=== PATIENT | female | born 1980 | race Caucasian/White ===

== ENCOUNTER 2021-10-15 12:55 | Emergency (ER) | payer SELFPAY ==
[~2021-10-15] VITALS: Ht 157.5 cm; Wt 90.7 kg
[2021-10-15 13:31] VITALS: BP 141/89
--- NOTE | 2021-10-15 13:37 | NUR ---
Ambulatory edrm6. Pt c/o vaginal ordor with itching starting appx 3-4 days ago. Pt reports history of UTI.
[2021-10-15 14:13] LABS: BILIRUBIN,URINE NEGATIVE (NEGATIVE); UROBILINOGEN,URINE 0.2 E.U./dL (0.2)
[2021-10-15 15:03] VITALS: BP 136/76
[2021-10-15] MEDS ORDERED: ROCEPHIN IM STA (15:06)
--- NOTE | 2021-10-15 15:15 | ER.PDOC ---
General Chief Complaint: Female Urogenital Problems Stated Complaint: FEMALE Time seen by MD: 15:08 Source: patient Exam Limitations: no limitations History of Present Illness Initial Comments Patient complaining of itchy vagina odorous discharge after she had unprotected sex with someone 4 days ago. No fever. No pelvic pain. She is concerned that she might have contracted STD and does not want to take it to her in the house. Severity/Quality: moderate Associated Symptoms: vaginal discharge Past Medical History Medical History: no pertinent history Surgical History: cholecystectomy Family History Significant Family History: no pertinent family hx Social History Smoking: non-smoker Alcohol Use: none Drug Use: none Review of Systems Constitutional: no symptoms reported EENTM: no symptoms reported Respiratory: no symptoms reported Cardiovascular: no symptoms reported Gastrointestinal: no symptoms reported Genitourinary: see HPI All Other Systems: Reviewed and Negative Physical Exam General Appearance: No Apparent Distress, WD/WN EENT: eyes nml inspection, nml ENT inspection, pharynx nml Neck: nml inspection, non-tender Cardiovascular/Respiratory: Regular Rate, Rhythm, No M/R/G, Normal Peripheral Pulses, No JVD, Normal Breath Sounds, No Respiratory Distress Abdomen: Normal Bowel Sounds, Non Tender, Soft, No Organomegaly, No Pulsatile Mass Back: nml inspection Pelvic: No Cerv. 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, No Motor/Sensory Deficits, Alert, Normal Mood/Affect, Oriented x 3 Skin: Normal Color, Warm/Dry Lymphatic: No Adenopathy Results/Orders Results/Orders Orders - ALCIRA ANDREWS MD Urinalysis (10/15/21 14:05) Hcg Urine (10/15/21 14:05) Urine Culture (10/15/21 UNK) Ceftriaxone Sodium (Rocephin) (10/15/21 15:06) Vital Signs Date Time Temp Pulse Resp B/P (MAP) Pulse Ox O2 Delivery O2 Flow Rate FiO2 10/15/21 15:03 97.8 77 18 136/76 (96) 100 Room Air* 0 21 10/15/21 13:31 97.8 80 18 10/15/21 13:31 97.8 80 18 141/89 (106) 100 Room Air* 0 21 10/15/21 13:31 97.8 80 18 100 Laboratory Tests Test 10/15/21 00:00 Urine Collection Type UNKNOWN Urine Color YELLOW Urine Appearance HAZY Urine Bilirubin NEGATIVE (NEGATIVE) Urine Ketones NEGATIVE (NEGATIVE) Urine Specific [place] 1.020 (1.005-1.030) Urine pH 6.0 (4.5-8.0) Urine Protein NEGATIVE (NEGATIVE) Urine Urobilinogen 0.2 E.U./dL (0.2) Urine Nitrate NEGATIVE (NEGATIVE) Urine Leukocyte Esterase 1+ (NEGATIVE) H Urine Glucose (Auto)(UA) NEGATIVE (NEGATIVE) Urine Blood NEGATIVE (NEGATIVE) Urine RBC NONE SEEN RBC/HPF (NONE Urine WBC 2-5 WBC/HPF (0-2) Urine Squamous Epithelial Cells MANY (<=FEW) Urine Bacteria MANY (NONE SEEN) H Urine HCG, Qualitative NEGATIVE (NEGATIVE) Progress Progress Patient received a gram of Rocephin here. He has significant vaginal discharge and will be treated for UTI and vaginitis. ER DEPART Departure Time of Disposition: 15:22 Disposition: 01 HOME / SELF CARE / HOMELESS Impression: Primary Impression: UTI (urinary tract infection) Additional Impression: Vaginitis and vulvovaginitis, unspecified Condition: Stable Additional Instructions: Cipro Diflucan Flagyl Follow-up with your PCP in 3 to 5 days Return to ED if worsening or concerns Duration or Time Spent with Pa: 10 min Problem Qualifiers Primary Impression: UTI (urinary tract infection) Urinary tract infection type: site unspecified Hematuria presence: without hematuria Qualified Codes: N39.0 - Urinary tract infection, site not specified ALCIRA ANDREWS MD Oct 15, 2021 15:15
[2021-10-15] MEDS ORDERED: LIDOCAINE 1% VIAL ONE (15:29)
[2021-10-15] MEDS ORDERED: ROCEPHIN ONE (15:30)
== END 2021-10-15 15:43 | disposition home or self-care (01) ==
LOC: ER 12:55
DX: N39.0 Urinary tract infection, site not specified (principal); B37.3 Candidiasis of vulva and vagina; N76.0 Acute vaginitis; Z90.49 Acquired absence of other specified parts of digestive tract
CPT/HCPCS: 99283; 96372; 87086; 81001; 81025; J2001; J0696